=== PATIENT | female | born 1960 | race Caucasian/White ===

== ENCOUNTER 2017-09-29 09:56 | Emergency (ER) | payer SELFPAY ==
[~2017-09-29] VITALS: Ht 162.6 cm; Wt 70.0 kg
[2017-09-29] MEDS ORDERED: LEVO100T9 MT (10:18)
[2017-09-29 12:59] VITALS: BP 125/69
== END 2017-09-29 13:00 | disposition home or self-care (01) ==
LOC: ER 12:33
DX: E07.89 Other specified disorders of thyroid (principal)
CPT/HCPCS: 99283